=== PATIENT | female | born 2000 | race Caucasian/White ===

== ENCOUNTER 2022-12-04 18:28 | Emergency (ER) | payer OTHER ==
[2022-12-04 18:34] VITALS: BP 117/83; PULSE 103; RESP 18; TEMP 98.2; BMI 24.4
== END 2022-12-04 22:17 | disposition home or self-care (01) ==
LOC: JER 18:28
DX: R07.89 Other chest pain (principal)
CPT/HCPCS: 71046-TC-FY; 85379; 93005; 93010; 99285-25